=== PATIENT | female | born 1980 ===

== ENCOUNTER → 2021-08-02 14:33 | Outpatient (CLI) | payer OTHER, MEDICAID, SELFPAY ==
[2021-08-02 15:14] LABS: COVID19 -Nasal RAPID Negative (Negative)
== END ==
PROVIDERS: Visit Provider Nurse Practitioner Family
DX: Z20.822 Contact with and (suspected) exposure to COVID-19 (principal); R05.9 Cough, unspecified; R09.81 Nasal congestion
CPT/HCPCS: 87635

== ENCOUNTER → 2021-09-17 17:00 | Outpatient (CLI) | payer OTHER, MEDICAID, SELFPAY ==
[2021-09-17 17:42] LABS: COVID19 -Nasal RAPID POSITIVE (Negative)
== END ==
PROVIDERS: Visit Provider Nurse Practitioner Critical Care Medicine
DX: Z20.822 Contact with and (suspected) exposure to COVID-19 (principal)
CPT/HCPCS: 87635